=== PATIENT | male | born 1960 | race Caucasian/White ===

== ENCOUNTER 2023-09-26 07:18 | Day surgery (SDC) | payer OTHER ==
[~2023-09-26] VITALS: Ht 170.2 cm; Wt 86.3 kg
[~2023-09-26 07:18] MED LIST: FLOMAX0.4 MG PO; IBLOOD GLUCOSE TEST STRIP 1 EA TEST VI PRN; LACTATED RINGER'S 1,000 ML IV SCH; LIDOCAINE HCL 1% 5 ML SDV INJ ONE; MIDAZOLAM HCL 5 MG/5 ML VIAL IV PRN; OMEPRAZOLE20 MG PO; fentaNYL citrate 100 MCG/2 ML VIAL IV PRN
[2023-09-26 07:36] VITALS: BP 130/80
[2023-09-26] MEDS ORDERED: MIDAZOLAM HCL 5 MG/5 ML VIAL ONE (08:11)
[2023-09-26] MEDS ORDERED: fentaNYL citrate 100 MCG/2 ML VIAL ONE (08:12)
--- NOTE | 2023-09-26 09:16 | NUR ---
09/26/23 0916 Peyton Bain 0901- PT ARRIVES TO PACU, LEFT LATERAL POSITION. AWAKE BUT DROWSY. DENIES PAIN AND NAUSEA. ABD SOFT, NON DISTENDED. ENCOURAGED TO PASS GAS. LR INFUSING TO RFA IV, O2 AT 3L PER NC. ALL MONITORS IN PLACE. 0914- DR MAR AT BEDSIDE TO GIVE RESULTS. PT WAKES EASILY TO TALK WITH DR MAR. MOVED TO ROOM AIR AT THIS TIME. PT RESTING INTERMITTENTLY.
[2023-09-26 09:27] VITALS: BP 126/96
--- NOTE | 2023-09-27 14:42 | PATH ---
[facility] [address] [place], [place] [address] Signed SPECIMEN(S): A CECUM COLON POLYPS SPECIMEN(S): B TRANSVERSE COLON POLYPS SPECIMEN(S): C SPLENIC FLEXURE COLON POLYP SPECIMEN SOURCE: A. CECUM COLON POLYPS B. TRANSVERSE COLON POLYPS C. SPLENIC FLEXURE COLON POLYP CLINICAL HISTORY: Family history of colon cancer, diverticulosis/polyp FINAL PATHOLOGIC DIAGNOSIS: A. Cecum colon polyps: - Tubular adenoma (multiple fragments). B. Transverse colon polyps: - Tubular adenoma (two fragments). - Hyperplastic polyp (three fragments). C. Splenic flexure colon polyp: - Hyperplastic polyps (multiple fragments). JVR:smn MICROSCOPIC EXAMINATION: Histologic sections of all submitted blocks are examined by light microscopy. These findings, together with the gross examination, support the pathologic diagnosis. GROSS DESCRIPTION: A. The specimen, labeled and designated "Lorri, cecum colon polyps," is received in formalin and consists of nine lowe soft tissue fragments, ranging from 0.1-0.6 cm. Entirely submitted in (A1). B. The specimen, labeled and designated "Lorri, transverse colon polyps," is received in formalin and consists of six lowe soft tissue fragments, ranging from 0.1-0.4 cm. Entirely submitted in (B1). C. The specimen, labeled and designated "Lorri, splenic flexure colon polyp," is received in formalin and consists of seven lowe, soft tissue fragments, ranging from 0.1-0.4 cm. Entirely submitted in (C1). VB (under the direct supervision of a pathologist) The Gross Description was prepared using a voice recognition system. The report was reviewed for accuracy; however, sound-alike word errors, addition and/or PATIENT NAME: BENNIE DOUGLASS PATHOLOGY DATE OF : 62 REPORT #: [id number] PHYSICIAN: RANULFO DORSEY PCP: GABRIEL OLIVEIRA MD REPORT IS CONFIDENTIAL AND NOT TO BE RELEASED WITHOUT AUTHORIZATION [facility] [address] [place] [address] [place], [place] [address] Signed deletions may occur. If there is any question about this report, please contact Client Services. PERFORMING LABORATORY: Technical component was performed by [facility], [address] [place] [address] (CLIA# [id number]). Professional interpretation was performed by [facility] - [address] [address] (CLIA#: [id number]). Diagnostician: Saeed Coker MD Pathologist Electronically Signed 09/27/2023 Copies: ~ PATIENT NAME: BENNIE DOUGLASS PATHOLOGY DATE OF : 62 REPORT #: [id number] PHYSICIAN: [facility] PCP: GABRIEL OLIVEIRA MD REPORT IS CONFIDENTIAL AND NOT TO BE RELEASED WITHOUT AUTHORIZATION
--- NOTE | 2023-09-28 13:37 | OR ---
[facility] [address] [place], [place] [address] Signed DATE OF OPERATION: 09/26/2023 SURGEON: Sherley Mar MD PREOPERATIVE DIAGNOSIS: Family history of colon cancer (father). POSTOPERATIVE DIAGNOSES: 1. Sigmoid diverticulosis. 2. Polyps x5. PROCEDURE: Total colonoscopy to cecum with cold morcellation polypectomy x5. ANESTHESIA: Intravenous sedation; fentanyl 150 mcg and Versed 6 mg. INDICATION: This 63-year-old white man is a patient of Dr. Gabriel Grissom. He last underwent colonoscopy 12 years ago. He has family history of colon cancer in his father. He currently has no symptoms of bleeding, diarrhea, or constipation. He is admitted to undergo colonoscopy on the basis of his family history. He understands the risk of bleeding, infection, and perforation. FINDINGS: The prep was excellent. Complete colonoscopy was undertaken of the cecum. There were two small polyps of the cecum, both excised with cold morcellation technique. Two small polyps of the transverse colon similarly excised and a single polyp at the splenic flexure also excised by cold morcellation technique. There were no other findings of concern. DESCRIPTION OF PROCEDURE: The patient was brought to the endoscopy suite and placed in the lateral decubitus position, given intravenous sedation to the point of slurred speech and nystagmus. Digital rectal examination was normal. An Olympus video colonoscope was passed in the rectum and manipulated throughout the colon ultimately intubating the cecum itself. The ileocecal valve and appendiceal orifice were normal. There were two small polyps of the cecum, both excised with cold morcellation technique. The scope was then withdrawn and another two similar small Electronically Signed By: SHERLEY MAR MD 09/28/23 1337 PATIENT NAME: BENNIE DOUGLASS OPERATIVE REPORT DATE OF : 62 REPORT #: [id number] PHYSICIAN: SHERLEY MAR MD PCP: GABRIEL GRISSOM MD REPORT IS CONFIDENTIAL AND NOT TO BE RELEASED WITHOUT AUTHORIZATION [facility] [address] [place], [place] [address] Signed polyps were noted in the transverse colon, both excised with cold morcellation technique as well. Further withdrawal showed a single polyp at the splenic flexure. Attempts were made for a snare polypectomy, however, it was not in a good position for that and on that basis, multiple excisions with morcellation device used to extirpate the polyp. Further withdrawal confirmed diverticula of the sigmoid and left colon. Retroflexed view of the rectum was normal. Scope was removed and the patient was taken to the recovery room in good condition. CONCLUDING DIAGNOSES: 1. Small polyps x5. 2. Diverticulosis. PLAN: Recommend repeat colonoscopy in 2 to 3 years, sooner if clinically indicated. He will return to the ongoing care of Dr. Grissom. MD DIOMEDES Stewart/LING /[id number] cc: Gabriel Grissom MD Copies: GABRIEL GRISSOM MD ~ Electronically Signed By: SHERLEY MAR MD 09/28/23 1337 PATIENT NAME: BENNIE DOUGLASS CLAIRE OPERATIVE REPORT DATE OF : 62 REPORT #: [id number] PHYSICIAN: SHERLEY MAR MD PCP: GABRIEL GRISSOM MD REPORT IS CONFIDENTIAL AND NOT TO BE RELEASED WITHOUT AUTHORIZATION
== END 2023-09-26 09:36 | disposition home or self-care (01) ==
LOC: OPS 07:18 → DS 07:18 → OPS 08:15 → DS 08:15 → OPS 09:36
PROVIDERS: ATTEND Surgery
PROC: 0DBL8ZZ Excision of Transverse Colon, Via Natural or Artificial Opening Endoscopic (ICD-10-PCS; 2023-09-26)
PROC: 0DBH8ZZ Excision of Cecum, Via Natural or Artificial Opening Endoscopic (ICD-10-PCS; principal; 2023-09-26 08:15)
DX: Z12.11 Encounter for screening for malignant neoplasm of colon (principal); Z80.0 Family history of malignant neoplasm of digestive organs; R97.20 Elevated prostate specific antigen [PSA]; Z88.0 Allergy status to penicillin; K57.30 Diverticulosis of large intestine without perforation or abscess without bleeding; D12.0 Benign neoplasm of cecum; D12.3 Benign neoplasm of transverse colon
CPT/HCPCS: 99153; G0500; J2250; J3010; J7121